=== PATIENT | female | born 1960 | race Two or more races ===

== ENCOUNTER 2021-01-03 08:11 | Outpatient (CLI) | payer OTHER | END 2021-01-03 08:20 | disposition home or self-care (01) | LOC: SONOGRAMA 08:11 | PROVIDERS: ATTEND Pathology Anatomic Pathology & Clinical Pathology | DX: D34 Benign neoplasm of thyroid gland (principal); E04.1 Nontoxic single thyroid nodule; E07.89 Other specified disorders of thyroid ==

== ENCOUNTER 2021-03-18 08:00 | Outpatient (CLI) | payer OTHER | END 2021-03-18 08:04 | disposition home or self-care (01) | LOC: SONOGRAMA 08:00 | PROVIDERS: ATTEND Pathology Anatomic Pathology & Clinical Pathology | DX: D34 Benign neoplasm of thyroid gland (principal); E04.8 Other specified nontoxic goiter ==